=== PATIENT | female | born 1955 | race Hispanic/Latino ===

== ENCOUNTER 2017-02-26 10:41 | Inpatient (IN) | payer OTHER ==
[2017-02-26] MEDS ORDERED: HEPARIN 10,000 UNITS/10 ML IV ONE (11:28)
[2017-02-26] MEDS ORDERED: NARCAN 0.4 MG/1 ML IV PRN (11:30)
[2017-02-26] MEDS ORDERED: MILK OF MAGNESIA PO PRN (11:30)
[2017-02-26] MEDS ORDERED: MORPHINE IV PRN (11:30)
[2017-02-26] MEDS ORDERED: ZOFRAN IV PRN (11:30)
[2017-02-26] MEDS ORDERED: NORCO 5/325 PO PRN (11:30)
[2017-02-26] MEDS ORDERED: DULCOLAX PR PRN (11:30)
[2017-02-26] MEDS ORDERED: TYLENOL PO PRN (11:30)
[2017-02-26] MEDS ORDERED: HEPARIN/ 0.45% NACL-25,000 UNIT/500 ML 25,000 UNIT/500 ML BAG IV SCH (12:00)
[2017-02-26 13:58] LABS: Basophils # (Auto) 0.1 K/mm3 (0.0-0.1); Basophils % (Auto) 0.8 % (0.0-1.8); Eosinophils # (Auto) 0.1 K/mm3 (0.0-0.4); Eosinophils % (Auto) 1.7 % (0.0-4.3); Hematocrit 36.5 % (30.3-42.9); Hemoglobin 12.1 gm/dl (10.1-14.3); Lymphocytes # (Auto) 2.1 K/mm3 (1.2-5.4); Lymphocytes % (Auto) 31.3 % (13.4-35.0); Mean Corpuscular HGB Conc 33 % (30-34); Mean Corpuscular Hemoglobin 29 pg (28-32); Mean Corpuscular Volume 87 fl (79-97); Monocytes # (Auto) 0.6 K/mm3 (0.0-0.8); Monocytes % (Auto) 9.1 % (0.0-7.3); Platelet Count 270 K/mm3 (140-440)
[2017-02-26 14:07] LABS: INR 0.98 (0.87-1.13); Partial Thromboplastin Time 31.2 Sec. (24.2-36.6)
[2017-02-26 14:08] LABS: BUN/Creatinine Ratio 44; Blood Urea Nitrogen 22 mg/dL (7-17); Calcium 9.4 mg/dL (8.4-10.2); Hemolysis Index 3
--- NOTE | 2017-02-26 17:04 | Cat Scan Report ---
FINAL REPORT PROCEDURE: CT ANGIO CHEST TECHNIQUE: Computerized tomographic angiography of the chest was performed after the IV injection of iodinated nonionic contrast including image processing. The image data was postprocessed using 2-dimensional multiplanar reformatted (MPR) and 3-dimensional (MIP and/or volume rendered) techniques. HISTORY: dvt with shortness of breath COMPARISON: No prior studies are available for comparison. FINDINGS: Heart and pericardium: No pericardial effusion or thickening is seen. Thoracic aorta: No aneurysm or dissection is seen.. Pulmonary vasculature: Normal. Lymph nodes: No enlarged thoracic lymph nodes. Lungs: Minimal linear atelectasis or scarring in the right lung base. Pleural space: No effusion, thickening, or pneumothorax. Musculoskeletal structures: There are degenerative disc changes of the mid thoracic spine, with disc space narrowing and anterior osteophyte formation. Upper abdominal structures: There is a 3 millimeter low-density lesion in the right hepatic lobe, likely a cyst. IMPRESSION: No evidence of pulmonary emboli
[2017-02-26] MEDS: HEPARIN 10,000 UNITS/10 ML ONE (17:53)
--- NOTE | 2017-02-26 18:04 | Event Note ---
Date: 02/26/17 H&P was sent with patient. This should be updated. Patient had CT angiogram. Patient is nothing by mouth for IVC filter and thrombectomy tomorrow.
--- NOTE | 2017-02-27 09:30 | Consultation ---
History of Present Illness - Reason for Consult Consult date: 02/27/17 - History of Present Illness Patient is 61 yo admitted with DVT right lower ext. The hospitalist service has been consulted for management of medical comorbidities Past History Past Medical History: DVT (Right leg), other Past Surgical History: total hip replacement, Other (Tubal ligation) Medications and Allergies Allergies Allergy/AdvReac Type Severity Reaction Status Date / Time strawberry Allergy Rash Unverified 02/26/17 12:27 Home Medications Medication Instructions Recorded Confirmed Last Taken Type Acetaminophen/Codeine [Tylenol 1 each PO Q4-6H PRN 02/26/17 02/26/17 02/26/17 History /Codeine # 3 tab] Apixaban [Eliquis] 10 mg PO BID 02/26/17 02/26/17 02/25/17 History Active Meds: Active Medications Acetaminophen (Tylenol) 650 mg PO Q4H PRN PRN Reason: Pain MILD(1-3)/Fever >100.5/MATHEWS Acetaminophen/Hydrocodone Bitart ([place] 5/325) 2 each PO Q6H PRN PRN Reason: Pain, Moderate (4-6) Bisacodyl (Dulcolax) 10 mg [place] QDAY PRN PRN Reason: Constipation unrelieved by MOM Heparin Sodium/Sodium Chloride (Heparin/ 0.45% Nacl-25,000 Unit/500 Ml) 25,000 unit in 500 mls @ 24 mls/hr IV TITR PATRICK; 1,200 UNITS/HR PRN Reason: Protocol Last Titration: 02/27/17 03:02 Dose: 1,050 units/hr, 21 mls/hr Sodium Chloride (Nacl 0.9% 1000 Ml) 1,000 mls @ 75 mls/hr IV DIRECT PATRICK Last Admin: 02/27/17 00:00 Dose: 75 mls/hr Magnesium Hydroxide (Milk Of Magnesia) 30 ml PO Q4H PRN PRN Reason: Constipation Morphine Sulfate (Morphine) 2 mg IV Q4H PRN PRN Reason: Pain, Moderate (4-6) Naloxone HCl (Narcan 0.4 Mg/1 Ml) 0.1 mg IV Q2MIN PRN PRN Reason: Res Rate </= 8 or 02 SAT < 92% Ondansetron HCl (Zofran) 4 mg IV Q8H PRN PRN Reason: Nausea Exam - Constitutional Vitals: Temp Pulse Resp BP Pulse Ox 98.3 F 94 H 20 140/77 98 02/27/17 07:57 02/27/17 07:57 02/27/17 07:57 02/27/17 07:57 02/27/17 07:57 Results - Labs CBC & Chem 7: 02/26/17 13:10 02/26/17 13:06 Labs: Abnormal lab results 02/26/17 02/26/17 02/26/17 Range/Units 13:06 13:10 23:30 [place] % (Auto) 9.1 H (0.0-7.3) % Heparin Anti-Xa Level 1.37 H (0.3-0.7) U.I./ml Potassium 5.1 H (3.6-5.0) mmol/L BUN 22 H (7-17) mg/dL Creatinine 0.5 L (0.7-1.2) mg/dL 02/27/17 Range/Units 08:46 [place] % (Auto) (0.0-7.3) % Heparin Anti-Xa Level 0.84 H (0.3-0.7) U.I./ml Potassium (3.6-5.0) mmol/L BUN (7-17) mg/dL Creatinine (0.7-1.2) mg/dL Assessment and Plan DVT right lower extremity. On Heparin drip. For thrombectomy and IVC filter placement today. Elevated BP episodes. She denies HTN. Will monitor Full code status
[2017-02-27] MEDS ORDERED: HEPARIN/NS 5000 UNIT/500ML(CATH LAB) 1,000 ML IR ONE (11:36)
[2017-02-27] MEDS ORDERED: ANCEF/STERILE WATER 2 GM/20 ML 2 GM/20 ML SYRINGE IV ONE (11:37)
[2017-02-27] MEDS ORDERED: NACL 0.9% 500 ML 500 ML ONE (11:37)
[2017-02-27] MEDS: SUBLIMAZE ONE ×10 (11:59→15:07)
[2017-02-27] MEDS: VERSED ONE ×10 (11:59→15:07)
[2017-02-27] MEDS: XYLOCAINE 2% INFILTRATI ONE ×2 (12:02→12:38)
[2017-02-27] MEDS: HEPARIN 10,000 UNITS/10 ML ONE ×4 (12:05→13:52)
[2017-02-27] MEDS: BENADRYL ONE ×2 (12:44→13:03)
[2017-02-27] MEDS ORDERED: NACL 0.9% 50 ML ONE (12:52)
[2017-02-27] MEDS ORDERED: CATHFLO ONE (12:53)
[2017-02-27] MEDS ORDERED: HEPARIN/NS 5000 UNIT/500ML(CATH LAB) 500 ML IR ONE ×2 (12:53→14:12)
[2017-02-27] MEDS ORDERED: WATER FOR INJ (PF) 20 ML ONE (12:54)
[2017-02-27] MEDS ORDERED: NACL 0.9% 1000 ML 1,000 ML ONE (14:31)
[2017-02-27] MEDS ORDERED: ELIQUIS ONE (14:37)
[2017-02-27] MEDS ORDERED: HEPARIN 10,000 UNITS/10 ML ONE (14:59)
--- NOTE | 2017-02-27 15:46 | Operative Report ---
Operative Report Operative Report: EXAM: 1. Ultrasound guided access of the right internal jugular vein 2. Selection of the IVC with IVC venography 3. Fluoroscopic-guided placement of an infrarenal [place] retrievable IVC filter 4. Ultrasound-guided access of the right popliteal vein 5. Venography of the right lower extremity 6. Infusion of 10 mg of tPA with pulse spray in the right common iliac vein, external iliac vein, common femoral vein, and proximal superficial femoral vein 7. 8 [place] AngioJet mechanical thrombectomy of the right common iliac vein, external iliac vein, common femoral vein, and proximal superficial femoral vein 8. Supervisor Body Assembly 6 [place] mechanical thrombectomy device in the right common femoral vein and proximal superficial femoral vein 9. 8 [place] MPA guide aspiration thrombectomy in the right common femoral vein and proximal superficial femoral vein 10. Angioplasty of the right external iliac vein, right common femoral vein and proximal superficial femoral vein with a 9 mm and 12 mm angioplasty below 11. Intravascular ultrasound of the right superficial femoral vein, common femoral vein, external iliac vein, common femoral vein, and IVC 11. Intermittent thrombectomy of the right proximal superficial femoral artery with various devices 12. Fluoroscopic-guided placement of a right common iliac vein 16 mm x 90 mm wall stent endoprosthesis with postdilatation with a 16 mm angioplasty balloon 13. Angioplasty of the right common femoral vein with a 12 mm angioplasty balloon 14. 8 [place] AngioJet mechanical thrombectomy of the IVC filter 15. Venography of the right lower extremity DATE: 02/27/17 STRAWHAT SIZER: AMPARO BETANCOURT MD INDICATION: Symptomatic right lower extremity DVT with signs of phlegmasia. MEDICATIONS: Please see nursing report for full details. DEVICES: 8 [place] MPA guide 8 [place] AngioJet 6 [place] grain cleaner 12 mm angioplasty balloon 9 mm angioplasty balloon 16 mm angioplasty balloon 16 x 90 mm wall stent endoprosthesis Retrievable [place] IVC filter CONTRAST: Please see greenskeeper laborer report for full details PROCEDURE: The risks, benefits, and alternatives were discussed with the patient; written informed consent was obtained. The right neck was prepped and draped in a sterile fashion. Under direct ultrasound guidance, the right internal jugular vein was accessed with a 21- gauge micropuncture needle. 0.018 inch wire was passed to the IVC. Needle was exchanged for transitional dilator. Wire was exchanged for 0.035 inch wire. Transitional dilator was exchanged for a 5 [place] sheath. Pigtail cath was advanced over the wire into the IVC. The IVC was selected. Digital subjection angiography was performed demonstrating no evidence of thrombus in the IVC. The IVC was normal in size. Renal inflow was identified. There is reflux into the left common iliac vein which was patent. There is no reflex into the right common iliac vein which was probably occluded. The table was locked. Catheter was removed and sheath was removed and exchange for the IVC filter deployment device. IVC filter was advanced through the deployment device and appropriately placed below the renal veins and above the iliac caval junction. This was done under direct fluoroscopic guidance. Angiography was performed confirming position and patency of the IVC. The IVC filter was not tilted and was appropriately positioned midline. Wires, catheters and sheath removed. Pressure was held until hemostasis was achieved. Pressure dressing applied. The patient was flipped into the prone position. The right popliteal fossa was prepped and draped in a sterile fashion. Under direct ultrasound guidance, the right popliteal vein was accessed with a 21-gauge micropuncture needle. 0.018 inch wire was passed into the femoral vein. Needle was exchanged for transitional dilator. Wire was exchanged for 0.035 inch wire. Transitional dilator was exchanged for an 8 [place] sheath. The patient was heparinized. Digital subtraction angiography was performed demonstrating patency of the popliteal vein, and the lower and mid femoral vein. The upper femoral vein was thrombosed. The common femoral vein was thrombosed. The external iliac vein was thrombosed. The common iliac vein is thrombosed. The right external iliac vein was selected and digital subtraction angiography was performed confirming thrombosis of this vein. The IVC was selected and digital subtraction angiography confirmed patency of the IVC again. 0.035 inch wire was passed centrally. 8 [place] AngioJet was advanced over the wire used pulse spray 10 mg of tPA in the right upper femoral vein, common femoral vein, external iliac vein, and common iliac vein. 25 minute dwell time was allowed. 8 [place] mechanical thrombectomy was then performed of the right upper femoral vein, common femoral vein, external iliac vein, and common iliac vein. Digital subtraction angiography demonstrated clearance of thrombus in the right external iliac vein and common iliac vein with some residual thrombus in the internal iliac vein. Thrombectomy was repeated and digital subtraction angiography demonstrated clearance of thrombus from the internal iliac vein. Digital subtraction angiography demonstrated residual thrombus in the common femoral vein and upper femoral vein. 6 [place] grain cleaner was used to perform mechanical thrombectomy of the common femoral vein and upper femoral vein multiple times. 8 [place] MPA guide was then used to perform aspiration thrombectomy. 8 [place] AngioJet was used to perform mechanical thrombectomy of the section. Intermittent digital subtraction angiography was performed and the steps were repeated. As the steps were repeated, more and more of the thrombus was removed. There is some residual multifocal noncontiguous narrowing in the right lower external iliac vein, common femoral vein, and upper femoral vein. 9 mm angioplasty balloon was used to perform angioplasty of the right external iliac vein, common femoral vein and the upper femoral vein. This was performed multiple times. Intermittent 8 [place] mechanical thrombectomy was then performed. 12 mm angioplasty balloon was used to perform angioplasty of the right external iliac vein, right common femoral vein and the right upper femoral vein. Intermittent digital subtraction angiography was performed. Ultimately, all of the thrombus was cleared except for a focal 50% short segment thrombus within the upper femoral vein. The narrowing within the right external iliac vein had resolved after angioplasty. The narrowing within the upper femoral vein had resolved, but there is still a small amount of thrombus within it. There is some mild residual narrowing within the right common femoral vein. Intravascular ultrasound was then advanced over the wire and used to perform evaluation of the IVC, right common iliac vein, right external iliac vein, right common femoral vein, and right femoral vein. There was severe extrinsic compression from the right common iliac artery on the right common iliac vein resulting in 99% narrowing of the vessel. There is clearance of all thrombus from the right common iliac vein and external iliac vein. The right common femoral vein had some wall thickening suggestive of chronic issues with this vein but the thrombus within it had been removed. The right upper femoral vein had a focal less than 50% short segment thrombus within it. The rest of the femoral vein was patent. There is a small amount of thrombus within the IVC filter. I then used a 16 mm x 90 mm wall stent and deployed this across the right common iliac vein. This was post dilated with a 16 mm angioplasty balloon. I performed prolonged 6 minute angioplasty with a 12 mm angioplasty balloon of the right common femoral vein. I then used the 8 [place] mechanical thrombectomy device to perform mechanical thrombectomy of the IVC filter. Digital subtraction angiography was then performed demonstrating patency of the right femoral vein except for the short segment (1 cm)l less than 50% narrowing residual thrombus within the upper femoral vein. The right common femoral vein was widely patent without residual narrowing. The right external iliac vein was widely patent. The right stented common iliac vein is widely patent with flow passing into the IVC. The IVC filter was widely patent. After achieving this result, the patient was re-heparinized, and all wires, catheters, and she were removed. Pressure was held until hemostasis was achieved. The patient was provided 10 mg of Eliquis and DAGO hose was placed over the right leg. Pressure bandage applied to the right popliteal vein access site. FINDINGS: Please see procedure note above. IMPRESSION: 1. Successful mechanical thrombectomy of the right lower extremity venous system as described above. 2. Successful stenting of the right common iliac vein. 3. Successful intravascular ultrasound evaluation of the right common iliac vein, right external iliac vein, right common femoral vein, and right femoral vein. 4. Successful angioplasty of the right external iliac vein. 5. Successful angioplasty of the right common femoral vein. 6. Successful angioplasty of the right femoral vein/superficial femoral vein. 7. Successful placement of an infrarenal [place] IVC filter.
--- NOTE | 2017-02-27 15:53 | Post Operative Note ---
Date of procedure: 02/27/17 Pre-op diagnosis: Symptomatic RLE DVT Post-op diagnosis: same Procedure: 1. Ultrasound guided access of the right internal jugular vein 2. Selection of the IVC with IVC venography 3. Fluoroscopic-guided placement of an infrarenal [place] retrievable IVC filter 4. Ultrasound-guided access of the right popliteal vein 5. Venography of the right lower extremity 6. Infusion of 10 mg of tPA with pulse spray in the right common iliac vein, external iliac vein, common femoral vein, and proximal superficial femoral vein 7. 8 [place] AngioJet mechanical thrombectomy of the right common iliac vein, external iliac vein, common femoral vein, and proximal superficial femoral vein 8. Melt Room Operator 6 [place] mechanical thrombectomy device in the right common femoral vein and proximal superficial femoral vein 9. 8 [place] MPA guide aspiration thrombectomy in the right common femoral vein and proximal superficial femoral vein 10. Angioplasty of the right common femoral vein and proximal superficial femoral vein with a 9 mm and 12 mm angioplasty below 11. Intravascular ultrasound of the right superficial femoral vein, common femoral vein, external iliac vein, common femoral vein, and IVC 11. Intermittent thrombectomy of the right proximal superficial femoral artery with various devices 12. Fluoroscopic-guided placement of a right common iliac vein 16 mm x 90 mm wall stent endoprosthesis with postdilatation with a 16 mm angioplasty balloon 13. Angioplasty of the right common femoral vein with a 12 mm angioplasty balloon 14. 8 [place] AngioJet mechanical thrombectomy of the IVC filter 15. Venography of the right lower extremity Anesthesia: local (w/ conscious sedation) Surgeon: AMPARO BETANCOURT Estimated blood loss: minimal Condition: stable Disposition: floor
[2017-02-27] MEDS: NACL 0.9% 1000 ML 1,000 ML IV SCH ×3 (16:05→19:43)
[2017-02-27] MEDS ORDERED: MORPHINE ONE (16:43)
[2017-02-27] MEDS ORDERED: ZOFRAN ONE (16:49)
[2017-02-28] MEDS: ELIQUIS PO SCH ×2 (00:13→11:41)
[2017-02-28] MEDS: NACL 0.9% 1000 ML 1,000 ML IV SCH ×2 (00:48→06:56)
[2017-02-28 06:11] LABS: Hematocrit 31.4 % (30.3-42.9); Hemoglobin 10.3 gm/dl (10.1-14.3)
[2017-02-28 10:01] VITALS: BP 110/66
--- NOTE | 2017-02-28 10:32 | Progress Note ---
Assessment and Plan 61-year-old female presented with 3 months of shortness of breath and symptomatic right lower extremity proximal DVT. CT PA was negative. IVC filter placed and thrombectomy of right lower extremity was performed. Patient had an episode of shortness of breath after a prolonged procedure and IV narcotics which resolved. Back to baseline shortness of breath. Discussed with pulmonology who recommend echocardiogram and outpatient visit. Discussed with hospitalist who agree with plan. Set up with Dr. Callaway. Right lower extremity has significantly improved with decreased swelling, decreased pain, and now patient can ambulate. On Eliquis. After echocardiogram, patient can be discharged and will follow up with pulmonology and vascular. Subjective Date of service: 02/28/17 Interval history: Had shortness of breath for 3 months. CTPA negative. Got slightly worse last night. Her breathing is now back to baseline. Ambulated and her O2 sat went to 89%. Not below 88%. Contacted pulmonology who recommended echocardiogram with outpatient appointment. Discussed with hospitalist who agreed with plan. Right lower extremity feels much better. No longer has pain. Swelling improving. Palpable pulses. Now able to ambulate, which she wasn't able to for the last week. Objective - Constitutional Vitals: Vital Signs - 12hr 02/27/17 02/28/17 02/28/17 23:46 03:39 08:31 Temperature 99.3 F 99.6 F 98.7 F Pulse Rate 103 H 98 H 103 H Respiratory 18 18 20 Rate Blood Pressure 145/90 124/78 110/66 Blood Pressure [Right] O2 Sat by Pulse 92 97 88 Oximetry 02/28/17 02/28/17 08:36 09:59 Temperature 98.7 F Pulse Rate 95 H 99 H Respiratory 20 Rate Blood Pressure Blood Pressure 110/66 [Right] O2 Sat by Pulse 90 Oximetry General appearance: Present: no acute distress - EENT Eyes: EOM intact ENT: hearing intact - Respiratory Respiratory effort: other (No wheezes. No stridor. Not labored.) Extremities: normal temperature (right lower extremity), normal color (right lower extremity) Extremity abnormal: edema (right lower extremity) - Gastrointestinal General gastrointestinal: Present: soft - Psychiatric Psychiatric: appropriate mood/affect, cooperative - Labs CBC & Chem 7: 02/28/17 04:00 02/26/17 13:06
--- NOTE | 2017-02-28 10:43 | Short Stay Summary ---
Short Stay Documentation Date of service: 02/26/17 (Discharged on 02/28/17) Narrative H&P: 61-year-old female with symptomatically right lower extremity DVT and 3 months of shortness of breath who presents for thrombectomy. - History H&P: obtained from office Past Medical History: DVT (Right leg), other Past Surgical History: total hip replacement, Other (Tubal ligation) - Allergies and Medications Current Medications: Allergies strawberry Allergy (Unverified 02/26/17 12:27) Rash Home Medications Medication Instructions Recorded Confirmed Last Taken Type Acetaminophen/Codeine [Tylenol 1 each PO Q4-6H PRN 02/26/17 02/26/17 02/26/17 History /Codeine # 3 tab] Apixaban [Eliquis] 10 mg PO BID 02/26/17 02/26/17 02/25/17 History Active Medications Acetaminophen (Tylenol) 650 mg PO Q4H PRN PRN Reason: Pain MILD(1-3)/Fever >100.5/MATHEWS Acetaminophen/Hydrocodone Bitart ([place] 5/325) 2 each PO Q6H PRN PRN Reason: Pain, Moderate (4-6) Apixaban (Eliquis) 10 mg PO Q12HR PATRICK PRN Reason: Protocol Last Admin: 02/28/17 00:13 Dose: 10 mg Bisacodyl (Dulcolax) 10 mg [place] QDAY PRN PRN Reason: Constipation unrelieved by MOM Magnesium Hydroxide (Milk Of Magnesia) 30 ml PO Q4H PRN PRN Reason: Constipation Morphine Sulfate (Morphine) 2 mg IV Q4H PRN PRN Reason: Pain, Moderate (4-6) Last Admin: 02/27/17 16:46 Dose: 2 mg Naloxone HCl (Narcan 0.4 Mg/1 Ml) 0.1 mg IV Q2MIN PRN PRN Reason: Res Rate </= 8 or 02 SAT < 92% Ondansetron HCl (Zofran) 4 mg IV Q8H PRN PRN Reason: Nausea Last Admin: 02/27/17 16:50 Dose: 4 mg - Physical exam General appearance: mild distress (RLE pain) Lungs: Normal air movement Extremities: normal temperature (right lower extremity), normal color (right lower extremity) - Brief post op/procedure progress note Date of procedure: 02/27/17 Pre-op diagnosis: Symptomatic RLE DVT Post-op diagnosis: same Procedure: 1. Ultrasound guided access of the right internal jugular vein 2. Selection of the IVC with IVC venography 3. Fluoroscopic-guided placement of an infrarenal [place] retrievable IVC filter 4. Ultrasound-guided access of the right popliteal vein 5. Venography of the right lower extremity 6. Infusion of 10 mg of tPA with pulse spray in the right common iliac vein, external iliac vein, common femoral vein, and proximal superficial femoral vein 7. 8 [place] AngioJet mechanical thrombectomy of the right common iliac vein, external iliac vein, common femoral vein, and proximal superficial femoral vein 8. Community Center Coordinator 6 [place] mechanical thrombectomy device in the right common femoral vein and proximal superficial femoral vein 9. 8 [place] MPA guide aspiration thrombectomy in the right common femoral vein and proximal superficial femoral vein 10. Angioplasty of the right common femoral vein and proximal superficial femoral vein with a 9 mm and 12 mm angioplasty below 11. Intravascular ultrasound of the right superficial femoral vein, common femoral vein, external iliac vein, common femoral vein, and IVC 11. Intermittent thrombectomy of the right proximal superficial femoral artery with various devices 12. Fluoroscopic-guided placement of a right common iliac vein 16 mm x 90 mm wall stent endoprosthesis with postdilatation with a 16 mm angioplasty balloon 13. Angioplasty of the right common femoral vein with a 12 mm angioplasty balloon 14. 8 [place] AngioJet mechanical thrombectomy of the IVC filter 15. Venography of the right lower extremity Anesthesia: local (w/ conscious sedation) Surgeon: AMPARO BETANCOURT Estimated blood loss: other (300 mL blood loss from thrombectomy devices) Condition: stable - Hospital course Hospital course: Patient was admitted to the hospital and was initially started on a heparin drip. This allowed her transition from Eliquis to heparin. She had a CT pulmonary angiogram performed due to her 3 months of shortness of breath which demonstrated no pulmonary emboli. She underwent right lower extremity percutaneous thrombectomy and IVC filter placement. She had excellent technical result. Her symptoms of her right lower extremity have greatly improved. She had a transitory episode of shortness of breath after being sedated which has since resolved. She is back to her baseline shortness of breath. Right lower extremity is now able to be moved without pain. Regarding shortness of breath, I contacted Dr. Callaway who recommended echocardiogram and outpatient appointment with pulmonology. This was discussed with Dr. Schofield, hospitalist, who agreed with the plan. Patient will be subsequently discharged after echocardiogram. 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
--- NOTE | 2017-02-28 14:04 | Progress Note ---
Hospitalist Physical - Constitutional Vitals: Temp Pulse Resp BP Pulse Ox 98.7 F 99 H 20 110/66 90 02/28/17 09:59 02/28/17 09:59 02/28/17 09:59 02/28/17 09:59 02/28/17 09:59 General appearance: Present: mild distress (RLE pain) Results - Labs CBC & Chem 7: 02/28/17 04:00 02/26/17 13:06 Labs: Laboratory Last Values WBC 6.8 K/mm3 (4.5-11.0) 02/26/17 13:10 RBC 4.20 M/mm3 (3.65-5.03) 02/26/17 13:10 Hgb 10.3 gm/dl (10.1-14.3) 02/28/17 04:00 Hct 31.4 % (30.3-42.9) 02/28/17 04:00 MCV 87 fl (79-97) 02/26/17 13:10 MCH 29 pg (28-32) 02/26/17 13:10 MCHC 33 % (30-34) 02/26/17 13:10 RDW 14.0 % (13.2-15.2) 02/26/17 13:10 Plt Count 233 K/mm3 (140-440) 02/28/17 04:00 Lymph % (Auto) 31.3 % (13.4-35.0) 02/26/17 13:10 [place] % (Auto) 9.1 % (0.0-7.3) H 02/26/17 13:10 Eos % (Auto) 1.7 % (0.0-4.3) 02/26/17 13:10 Baso % (Auto) 0.8 % (0.0-1.8) 02/26/17 13:10 Lymph # 2.1 K/mm3 (1.2-5.4) 02/26/17 13:10 [place] # 0.6 K/mm3 (0.0-0.8) 02/26/17 13:10 Eos # 0.1 K/mm3 (0.0-0.4) 02/26/17 13:10 Baso # 0.1 K/mm3 (0.0-0.1) 02/26/17 13:10 Seg Neutrophils % 57.1 % (40.0-70.0) 02/26/17 13:10 Seg Neutrophils # 3.9 K/mm3 (1.8-7.7) 02/26/17 13:10 PT 13.5 Sec. (12.2-14.9) 02/26/17 13:06 INR 0.98 (0.87-1.13) 02/26/17 13:06 APTT 31.2 Sec. (24.2-36.6) 02/26/17 13:06 Heparin Anti-Xa Level 0.84 U.I./ml (0.3-0.7) H 02/27/17 08:46 Sodium 142 mmol/L (137-145) 02/26/17 13:06 Potassium 5.1 mmol/L (3.6-5.0) H 02/26/17 13:06 Chloride 104.5 mmol/L (98-107) 02/26/17 13:06 Carbon Dioxide 24 mmol/L (22-30) 02/26/17 13:06 Anion Gap 19 mmol/L 02/26/17 13:06 BUN 22 mg/dL (7-17) H 02/26/17 13:06 Creatinine 0.5 mg/dL (0.7-1.2) L 02/26/17 13:06 Estimated GFR > 60 ml/min 02/26/17 13:06 BUN/Creatinine Ratio 44 % 02/26/17 13:06 Glucose 95 mg/dL (65-100) 02/26/17 13:06 Calcium 9.4 mg/dL (8.4-10.2) 02/26/17 13:06
--- NOTE | 2017-03-03 10:27 | Vascular Lab Report ---
MISCELLANEOUS VESSEL IDENTIFICATION: COMMENTS ON THE SCAN: The right popliteal vein was identified and under real-time ultrasound guidance was cannulated. IMPRESSION: Successful ultrasound guided vein cannulation.
--- NOTE | 2017-03-03 10:29 | Vascular Lab Report ---
MISCELLANEOUS VESSEL IDENTIFICATION: COMMENTS ON THE SCAN: The right IJ vein was identified and under real-time ultrasound guidance was cannulated. IMPRESSION: Successful ultrasound guided vein cannulation.
--- NOTE | 2017-03-04 13:06 | Query-Hypercoagulopathy ---
Dear Shawna Date: 03/04/17 Ordained Minister/CDS:____Jhjatin / Jin Phone#:____[phone] Exercise your independent professional judgment when responding to query. Questions asked do not imply a particular answer is desired or expected. We greatly appreciate your clarification on this issue. Clinical Documentation States: 61 year old female was admitted on 02/26/17 The Progress note (Dr. Matos 02/27/17) states " Patient is 61 yo admitted with DVT right lower ext. The hospitalist service has been consulted for management of medical comorbidities Assessment and Plan DVT right lower extremity. On Heparin drip. For thrombectomy and IVC filter placement today. " Please clarify if the patient has any of the following condition/s: [ ] Primary Hypercoagulopathy due to: [ ] Factor V Leiden [ ] Protein C/S deficiency [ ] Prothrombin G 59379C (Factor II mutation) [ ] Antithrombin III (AT III) deficiency [ ] Sickle cell anemia and other hemolytic anemias [ ] Lupus anticoagulant [ ] Unable to determine [ x] Secondary Hypercoagulopathy due to: [ ] Advanced age [ ] Atrial Fibrillation [ ] Diabetic Ketoacidosis (DKA) [ ] [ ] Oral contraceptives [ ] Hormonal replacement use [ ] Heparin Induced Thrombocytopenia (HIT) [ ] Severe Nephrotic Syndrome (Albumin < 2.5g/dl) [x ] Unable to determine [ ] Other: [ ] Comment/Explanation: Present on admission: [x ] Yes (Y) [ ] Clinically undeterminable (W) [ ] No (N) Please also document response in your Progress Notes and/or Discharge Summary and indicate if the condition was present on admission. ION
== END 2017-02-28 12:55 | disposition home health service (06) | DRG 271 ==
LOC: UNDOADMIN 10:41 → 3A 10:41 → 4A 02-27 16:45
PROVIDERS: ADMIT Radiology Diagnostic Radiology; ATTEND Radiology Diagnostic Radiology
PROC: 06CC3ZZ Extirpation of Matter from Right Common Iliac Vein, Percutaneous Approach (ICD-10-PCS; principal; 2017-02-27)
PROC: 06CF3ZZ Extirpation of Matter from Right External Iliac Vein, Percutaneous Approach (ICD-10-PCS; 2017-02-27)
PROC: 06CM3ZZ Extirpation of Matter from Right Femoral Vein, Percutaneous Approach (ICD-10-PCS; 2017-02-27)
PROC: 06CM3ZZ Extirpation of Matter from Right Femoral Vein, Percutaneous Approach (ICD-10-PCS; 2017-02-27)
PROC: 04CK3ZZ Extirpation of Matter from Right Femoral Artery, Percutaneous Approach (ICD-10-PCS; 2017-02-27)
PROC: 06C03ZZ Extirpation of Matter from Inferior Vena Cava, Percutaneous Approach (ICD-10-PCS; 2017-02-27)
PROC: 067M3ZZ Dilation of Right Femoral Vein, Percutaneous Approach (ICD-10-PCS; 2017-02-27)
PROC: 067C3DZ Dilation of Right Common Iliac Vein with Intraluminal Device, Percutaneous Approach (ICD-10-PCS; 2017-02-27)
PROC: 067F3ZZ Dilation of Right External Iliac Vein, Percutaneous Approach (ICD-10-PCS; 2017-02-27)
PROC: 067M3ZZ Dilation of Right Femoral Vein, Percutaneous Approach (ICD-10-PCS; 2017-02-27)
PROC: B5191ZZ Fluoroscopy of Inferior Vena Cava using Low Osmolar Contrast (ICD-10-PCS; 2017-02-27)
PROC: B51B1ZZ Fluoroscopy of Right Lower Extremity Veins using Low Osmolar Contrast (ICD-10-PCS; 2017-02-27)
PROC: 3E03317 Introduction of Other Thrombolytic into Peripheral Vein, Percutaneous Approach (ICD-10-PCS; 2017-02-27)
PROC: B54BZZZ Ultrasonography of Right Lower Extremity Veins (ICD-10-PCS; 2017-02-27)
PROC: 06H03DZ Insertion of Intraluminal Device into Inferior Vena Cava, Percutaneous Approach (ICD-10-PCS; 2017-02-27)
PROC: B549ZZZ Ultrasonography of Inferior Vena Cava (ICD-10-PCS; 2017-02-27)
DX: I82.411 Acute embolism and thrombosis of right femoral vein (principal); D68.69 Other thrombophilia; Z96.649 Presence of unspecified artificial hip joint; Z98.51 Tubal ligation status; Z91.018 Allergy to other foods; Z79.899 Other long term (current) drug therapy
CPT/HCPCS: 36415; 37187; 37191; 37238; 37248; 37252; 37253; 71275; 75820; 76937; 80048; 85014; 85018; 85025; 85049; 85520; 85610; 85730; 93306; 96374; 96375; C1725; C1753; C1757; C1769; C1880; C1887; C1894; J0690; J1200; J1644; J2250; J2270; J2405; J2997; J3010; J7030; J7040; Q9967

== ENCOUNTER 2021-11-13 07:20 | Inpatient (IN) | payer MEDICARE, OTHER ==
[2021-11-13 08:56] LABS: Basophils # (Auto) 0.1 K/mm3 (0.0-0.1); Basophils % (Auto) 1.2 % (0.0-1.8); Eosinophils # (Auto) 0.2 K/mm3 (0.0-0.4); Eosinophils % (Auto) 2.4 % (0.0-4.3); Hemoglobin 11.2 gm/dl (10.1-14.3); Lymphocytes # (Auto) 2.2 K/mm3 (1.2-5.4); Lymphocytes % (Auto) 26.5 % (13.4-35.0); Mean Corpuscular HGB Conc 33 % (30-34); Mean Corpuscular Volume 88 fl (79-97); Monocytes # (Auto) 0.8 K/mm3 (0.0-0.8); Monocytes % (Auto) 9.5 % (0.0-7.3); Platelet Count 384 K/mm3 (140-440); Red Blood Count 3.88 M/mm3 (3.65-5.03); Red Cell Distribution Width 13.8 % (13.2-15.2)
[2021-11-13] MEDS ORDERED: SODIUM CHLORIDE 0.9% 1000 ML 1,000 ML IV SCH (09:00)
[2021-11-13 09:01] LABS: INR 1.11 (0.87-1.13)
[2021-11-13 09:02] LABS: Partial Thromboplastin Time 34.2 Sec. (24.2-36.6)
[2021-11-13 09:03] LABS: Blood Urea Nitrogen 12 mg/dL (7-17); Hemolysis Index 0
[2021-11-13 09:22] LABS: BUN/Creatinine Ratio 20
--- NOTE | 2021-11-13 10:02 | Anesthesia Day of Surgery ---
Anesthesia Day of Surgery - Day of Surgery Patient Examined: Yes Patient H&P Reviewed: Yes Patient is NPO: Yes
--- NOTE | 2021-11-13 10:06 | Anesthesia Consultation ---
Anesthesia Consult and Med Hx Date of service: 11/13/21 - Airway Anesthetic Teeth Evaluation: Good ROM Head & Neck: Adequate (S/P ACDF) Mental/Hyoid Distance: Adequate Mallampati Class: Class II Intubation Access Assessment: Good - Pre-Operative Health Status ASA Pre-Surgery Classification: ASA3 Proposed Anesthetic Plan: MAC (GA if needed) - Pulmonary Hx Smoking: Yes - Cardiovascular System Hx Heart Murmur: Yes Hx Peripheral Vascular Disease: Yes (AAA-1.2cm) - Central Nervous System Hx Back Pain: Yes Hx Psychiatric Problems: No - Gastrointestinal Hx Gastroesophageal Reflux Disease: No - Other Systems Hx Cancer: No - Additional Comments Anesthesia Medical History Comments: Pt had ACDF on and developed DVT (denies PE). Also had DVT in 2018. Pt states she saw Dr. Das at [facility] prior to ACDF and was cleared. Reports chronically decreased activity level and dyspnea since she was young.
[2021-11-13] MEDS: MIDAZOLAM 2 MG/2 ML INJ IV NR ×2 (10:15→10:46)
[2021-11-13] MEDS ORDERED: HEPARIN/NS 5000 UNIT/500ML 1,000 ML IR ONE ×2 (10:42→11:53)
[2021-11-13] MEDS ORDERED: fentaNYL 100 MCG/2 ML INJ ONE (10:44)
[2021-11-13] MEDS ORDERED: SODIUM CHLORIDE 0.9% 500 ML 500 ML IV ONE (11:00)
[2021-11-13] MEDS ORDERED: LIDOCAINE 1%/EPINEPHRINE 1:100,000 VIAL (20 ML) INFILTRATI ONE (11:02)
[2021-11-13] MEDS ORDERED: MIDAZOLAM 2 MG/2 ML INJ ONE (11:04)
[2021-11-13] MEDS ORDERED: LIDOCAINE MPF (2%) 20 MG/1 ML VIAL 5 ML ONE (11:04)
[2021-11-13] MEDS ORDERED: KETAMINE/STERILE WATER 50 MG/ML SYRINGE ONE (11:04)
[2021-11-13] MEDS ORDERED: ePHEDrine SULFATE 50 MG/1 ML INJ ONE (11:04)
[2021-11-13] MEDS: HEPARIN 10,000 UNITS/10 ML VIAL ONE ×4 (11:49→13:32)
[2021-11-13] MEDS ORDERED: APIXABAN 5 MG TAB ONE (14:05)
--- NOTE | 2021-11-13 14:24 | Short Stay Summary ---
Short Stay Documentation Date of service: 11/13/21 Narrative H&P: 66-year-old female with recent cervical stenosis status post ACDF complicated by extensive right lower extremity DVT who has a history of right lower extremity DVT. Presents for DVT thrombectomy due to severe swelling, pain, numbness of the right foot, and discoloration of the toes. - History Principal diagnosis: Iliofemoral DVT H&P: obtained from office - Allergies and Medications Current Medications: Allergies atorvastatin Allergy (Verified 11/13/21 08:00) Swelling strawberry Allergy (Unverified 02/26/17 12:27) Rash Home Medications Medication Instructions Recorded Confirmed Last Taken Type Apixaban [Eliquis] 10 mg PO BID 02/26/17 02/26/17 11/13/21 06:00 History Apixaban [Eliquis] 5 mg PO BID #60 tablet 02/28/17 11/13/21 Rx Aspirin EC [Halfprin EC] 81 mg PO QDAY 11/13/21 11/13/21 11/13/21 History Losartan/Hydrochlorothiazide 1 each PO DAILY 11/13/21 11/13/21 11/12/21 History [Losartan-Hctz 50-12.5 mg Tab] Pantoprazole [Protonix] 40 mg PO QDAY 11/13/21 11/13/21 11/12/21 History Rosuvastatin Calcium 40 mg PO DAILY 11/13/21 11/13/21 11/12/21 History Active Medications Sodium Chloride (Nacl 0.9% 1000 Ml) 1,000 mls @ 42 mls/hr IV DIRECT PATRICK Midazolam HCl (Midazolam 2 Mg/2 Ml Inj) 2 mg IV PREOP NR Stop: 11/13/21 23:59 Last Admin: 11/13/21 10:46 Dose: 1 mg - Physical exam General appearance: mild distress (Right lower extremity pain) Lungs: Normal air movement Heart: Regular rate Gastrointestinal: normal Extremities: pulses intact, abnormal (3+ edema of the right lower extremity, pain with palpation of the right lower extremity, numbness of the right foot, discoloration of the) - Brief post op/procedure progress note Date of procedure: 11/13/21 Pre-op diagnosis: Iliofemoral right lower extremity DVT Post-op diagnosis: same Procedure: 1. Ultrasound-guided access of the right internal jugular vein. 2. Selection of the IVC with venography. 3. Selection of the right common iliac vein with venography. 4. Fluoroscopic guided placement of a infrarenal IVC filter, Gloria, retrievable 5. Selection of the right common iliac vein, external iliac vein, common femoral vein, superficial femoral vein, popliteal vein, and venography of the right lower extremity. 6. Thrombectomy of the right common iliac vein, external iliac vein, common femoral vein, superficial femoral vein, popliteal vein, of the right lower extremity with a indigo CAT 12 device with separator 7. Ent Surgeon thrombectomy of the right common iliac vein, external iliac vein, and common femoral vein. 8. Angioplasty of the right common iliac vein with a 12 mm x 40 mm and 14 mm x 40 mm angioplasty balloon. 9. Angioplasty of the right external iliac vein, common femoral vein, and superficial femoral vein with a 12 mm x 40 and 12 mm x 60 mm angioplasty balloon 10. 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
--- NOTE | 2021-11-13 14:30 | Operative Report ---
Operative Report Operative Report: EXAM: 1. Ultrasound-guided access of the right internal jugular vein. 2. Selection of the IVC with venography. 3. Selection of the right common iliac vein with venography. 4. Fluoroscopic guided placement of a infrarenal IVC filter, Gloria, retrievable 5. Selection of the right common iliac vein, external iliac vein, common femoral vein, superficial femoral vein, popliteal vein, and venography of the right lower extremity. 6. Thrombectomy of the right common iliac vein, external iliac vein, common femoral vein, superficial femoral vein, popliteal vein, of the right lower extremity with a indigo CAT 12 device with separator 7. Cattle Brander thrombectomy of the right common iliac vein, external iliac vein, and common femoral vein. 8. Angioplasty of the right common iliac vein with a 12 mm x 40 mm and 14 mm x 40 mm angioplasty balloon. 9. Angioplasty of the right external iliac vein, common femoral vein, and superficial femoral vein with a 12 mm x 40 and 12 mm x 60 mm angioplasty balloon 10. Thrombectomy of the IVC below the filter and within the filter with a 12 indigo penumbra device DATE: 11/13/2021 PATIENT FINANCIAL COUNSELOR: AMPARO BETANCOURT MD INDICATION: [ ] MEDICATIONS: Please see nursing report for full details. DEVICES: [ ] CONTRAST: [ ] PROCEDURE: [ ] FINDINGS: [ ] IMPRESSION: [ ]
[2021-11-13] MEDS ORDERED: ONDANSETRON 4 MG/2 ML INJ IV PRN (14:34)
[2021-11-13] MEDS ORDERED: ACETAMINOPHEN 325 MG TAB PO PRN (14:34)
[2021-11-13] MEDS ORDERED: NALOXONE 0.4 MG/1 ML INJ IV PRN (14:34)
[2021-11-13] MEDS ORDERED: ALBUTEROL 2.5 MG/3 ML NEBU IH PRN (14:34)
[2021-11-13] MEDS ORDERED: ROSUVASTATIN CALCIUM 40 MG PO SCH (14:45)
[2021-11-13] MEDS ORDERED: NON-FORMULARY EACH (Losartan/Hydrochlorothiazide [Losartan-Hctz 50-12.5 Mg Tab] 1 EACH Tab PO SCH (14:45)
--- NOTE | 2021-11-13 16:11 | Post Anesthesia Evaluation ---
- Post Anesthesia Evaluation Patient Participated: Yes Airway Patent: Yes Stable Respiratory Function: Yes Nausea/Vomiting: No Temp > 96.8F: Yes Pain Manageable: Yes Adequeate Hydration: Yes Anesthesia Complications: No Block Receding Appropriately: Not Applicable Patient on Ventilator: No
[2021-11-13] MEDS: LOSARTAN 50 MG TAB PO SCH (17:00)
[2021-11-13] MEDS: PANTOPRAZOLE 40 MG TAB PO SCH (17:01)
[2021-11-13] MEDS: hydroCHLOROthiazide 12.5 MG CAP PO SCH (17:02)
[2021-11-13] MEDS: HYDROcodone/ACETAMINOPHEN 5-325 MG TAB PO PRN (18:54)
[2021-11-13 21:32] LABS: Hematocrit 39.4 % (30.3-42.9); Mean Corpuscular HGB Conc 33 % (30-34); Mean Corpuscular Volume 88 fl (79-97); Platelet Count 319 K/mm3 (140-440); Red Blood Count 4.48 M/mm3 (3.65-5.03); Red Cell Distribution Width 14.4 % (13.2-15.2)
[2021-11-13 21:41] LABS: INR 1.27 (0.87-1.13)
[2021-11-13 21:42] LABS: Partial Thromboplastin Time 31.5 Sec. (24.2-36.6)
[2021-11-13] MEDS: APIXABAN 5 MG TAB PO SCH (22:49)
[2021-11-13 23:29] LABS: Hematocrit 38.5 % (30.3-42.9); Mean Corpuscular HGB Conc 34 % (30-34); Mean Corpuscular Volume 88 fl (79-97); Platelet Count 323 K/mm3 (140-440); Red Cell Distribution Width 14.4 % (13.2-15.2)
[2021-11-14 06:23] LABS: Basophils % (Auto) 0.6 % (0.0-1.8); Eosinophils # (Auto) 0.3 K/mm3 (0.0-0.4); Eosinophils % (Auto) 3.3 % (0.0-4.3); Hematocrit 38.6 % (30.3-42.9); Hemoglobin 12.6 gm/dl (10.1-14.3); Lymphocytes # (Auto) 2.4 K/mm3 (1.2-5.4); Lymphocytes % (Auto) 28.3 % (13.4-35.0); Mean Corpuscular HGB Conc 33 % (30-34); Mean Corpuscular Volume 88 fl (79-97); Monocytes # (Auto) 0.7 K/mm3 (0.0-0.8); Monocytes % (Auto) 8.2 % (0.0-7.3); Platelet Count 318 K/mm3 (140-440); Red Blood Count 4.38 M/mm3 (3.65-5.03); Red Cell Distribution Width 14.7 % (13.2-15.2)
[2021-11-14 06:37] LABS: Blood Urea Nitrogen 6 mg/dL (7-17); Calcium 8.8 mg/dL (8.4-10.2); Hemolysis Index 2
[2021-11-14 06:41] LABS: BUN/Creatinine Ratio 12
[2021-11-14] MEDS: ASPIRIN EC 81 MG TAB PO SCH ×2 (10:29→10:31)
[2021-11-14] MEDS: hydroCHLOROthiazide 12.5 MG CAP PO SCH (10:30)
[2021-11-14] MEDS: APIXABAN 5 MG TAB PO SCH (10:30)
[2021-11-14] MEDS: PANTOPRAZOLE 40 MG TAB PO SCH (10:30)
[2021-11-14] MEDS: LOSARTAN 50 MG TAB PO SCH (10:31)
[2021-11-14] MEDS: HYDROcodone/ACETAMINOPHEN 5-325 MG TAB PO PRN (10:36)
[2021-11-14 12:24] VITALS: BP 136/84
--- NOTE | 2021-11-14 14:01 | Progress Note ---
Assessment and Plan Patient is status post percutaneous mechanical thrombectomy of right lower extremity. Her right leg is soft with minimal if any edema. I have advised her to continue wearing her DAGO hose until she gets compression socks. I explained to the patient as well as the family to get extra-large with 20 to 30 mmHg of pressure. I also provided the patient with a discount card which will provide her with 30 days of free Eliquis. I also provided her with 1 month of samples. Discharge instructions have been explained. The patient as well as her daughter, and , have expressed understanding and agree. They will follow-up in outpatient setting with Dr. Stovall in 2 weeks. Subjective Date of service: 11/14/21 Principal diagnosis: Iliofemoral DVT Interval history: Patient complaining of some neck pain. She states her leg feels good. She has no additional complaints at this time. Objective - Constitutional Vitals: Vital Signs - 12hr 11/14/21 11/14/21 11/14/21 07:00 10:00 11:10 Temperature 98.7 F 98.3 F Pulse Rate 80 108 H 90 Respiratory 19 18 Rate Blood Pressure 148/88 136/84 [Left] O2 Sat by Pulse 98 98 99 Oximetry General appearance: Present: no acute distress - Neck Neck: other (Right neck access site is soft and free of hematoma) - Respiratory Respiratory effort: normal - Cardiovascular Rhythm: regular Extremities: no ischemia, No edema - Gastrointestinal General gastrointestinal: Present: soft - Labs CBC & Chem 7: 11/14/21 05:39 11/14/21 05:39 Labs: Abnormal lab results 11/13/21 11/13/21 11/13/21 Range/Units 12:36 21:00 21:00 [place] % (Auto) (0.0-7.3) % PT 17.4 H (12.2-14.9) Sec. INR 1.27 H (0.87-1.13) Chloride (98-107) mmol/L BUN (7-17) mg/dL Creatinine 0.4 L (0.6-1.2) mg/dL Crossmatch See Detail 11/14/21 11/14/21 Range/Units 05:39 05:39 [place] % (Auto) 8.2 H (0.0-7.3) % PT (12.2-14.9) Sec. INR (0.87-1.13) Chloride 107.1 H (98-107) mmol/L BUN 6 L (7-17) mg/dL Creatinine 0.5 L (0.6-1.2) mg/dL Crossmatch Medications & Allergies - Medications Allergies/Adverse Reactions: Allergies atorvastatin Allergy (Verified 11/13/21 08:00) Swelling strawberry Allergy (Unverified 02/26/17 12:27) Rash Home Medications: Home Medications Medication Instructions Recorded Confirmed Last Taken Type Apixaban [Eliquis] 10 mg PO BID 02/26/17 02/26/17 11/13/21 06:00 History Apixaban [Eliquis] 5 mg PO BID #60 tablet 02/28/17 11/13/21 Rx Apixaban [Eliquis] 5 mg PO BID #60 tab 11/13/21 Unknown Rx Aspirin EC [Halfprin EC] 81 mg PO QDAY 11/13/21 11/13/21 11/13/21 History HYDROcodone/APAP 5-325 [[place] 1 - 2 each PO Q6HR PRN #60 tablet 11/13/21 Unknown Rx 5/325] Losartan/Hydrochlorothiazide 1 each PO DAILY 11/13/21 11/13/21 11/12/21 History [Losartan-Hctz 50-12.5 mg Tab] Pantoprazole [Protonix] 40 mg PO QDAY 11/13/21 11/13/21 11/12/21 History Rosuvastatin Calcium 40 mg PO DAILY 11/13/21 11/13/21 11/12/21 History Active Medications: Generic Name Dose Route Start Last Admin Trade Name Freq PRN Reason Stop Dose Admin Acetaminophen 650 mg 11/13/21 14:34 Acetaminophen 325 Mg Tab PO Q4H PRN Pain MILD(1-3)/Fever >100.5/MATHEWS Hydrocodone Bitart/Acetaminophen 2 each 11/13/21 14:34 11/14/21 10:36 Hydrocodone/Acetaminophen 5-325 Mg Tab PO 1 each Q6H PRN Administration Pain, Moderate (4-6) Albuterol 2.5 mg 11/13/21 14:34 Albuterol 2.5 Mg/3 Ml Nebu IH Q4HRT PRN Shortness Of Breath Apixaban 10 mg 11/13/21 22:00 11/14/21 10:30 Apixaban 5 Mg Tab PO 11/20/21 10:01 10 mg Q12HR PATRICK Administration Protocol Apixaban 5 mg 11/20/21 22:00 Apixaban 5 Mg Tab PO Q12HR PATRICK Protocol Aspirin 81 mg 11/13/21 15:00 11/14/21 10:31 Aspirin Ec 81 Mg Tab PO 81 mg QDAY PATRICK Administration Hydrochlorothiazide 12.5 mg 11/13/21 15:00 11/14/21 10:30 Hydrochlorothiazide 12.5 Mg Cap PO 12.5 mg QDAY PATRICK Administration Sodium Chloride 1,000 mls @ 42 mls/hr 11/13/21 09:00 Nacl 0.9% 1000 Ml IV DIRECT PATRICK Losartan Potassium 50 mg 11/13/21 15:00 11/14/21 10:31 Losartan 50 Mg Tab PO 50 mg QDAY PATRICK Administration Naloxone HCl 0.1 mg 11/13/21 14:34 Naloxone 0.4 Mg/1 Ml Inj IV Q2MIN PRN Res Rate </= 8 or 02 SAT < 92% Ondansetron HCl 4 mg 11/13/21 14:34 Ondansetron 4 Mg/2 Ml Inj IV Q8H PRN Nausea And Vomiting Pantoprazole Sodium 40 mg 11/13/21 15:00 11/14/21 10:30 Pantoprazole 40 Mg Tab PO 40 mg QDAY PATRICK Administration Sodium Chloride 10 ml 11/13/21 22:00 11/14/21 10:31 Sodium Chloride 0.9% 10 Ml Flush Syringe IV 10 ml BID PATRICK Administration Sodium Chloride 10 ml 11/13/21 14:34 Sodium Chloride 0.9% 10 Ml Flush Syringe IV PRN PRN LINE FLUSH
--- NOTE | 2021-11-14 14:02 | Short Stay Summary ---
Short Stay Documentation Date of service: 11/14/21 Narrative H&P: See H&P - History H&P: obtained from office - Allergies and Medications Current Medications: Allergies atorvastatin Allergy (Verified 11/13/21 08:00) Swelling strawberry Allergy (Unverified 02/26/17 12:27) Rash Home Medications Medication Instructions Recorded Confirmed Last Taken Type Apixaban [Eliquis] 10 mg PO BID 02/26/17 02/26/17 11/13/21 06:00 History Apixaban [Eliquis] 5 mg PO BID #60 tablet 02/28/17 11/13/21 Rx Apixaban [Eliquis] 5 mg PO BID #60 tab 11/13/21 Unknown Rx Aspirin EC [Halfprin EC] 81 mg PO QDAY 11/13/21 11/13/21 11/13/21 History HYDROcodone/APAP 5-325 [[place] 1 - 2 each PO Q6HR PRN #60 tablet 11/13/21 Unknown Rx 5/325] Losartan/Hydrochlorothiazide 1 each PO DAILY 11/13/21 11/13/21 11/12/21 History [Losartan-Hctz 50-12.5 mg Tab] Pantoprazole [Protonix] 40 mg PO QDAY 11/13/21 11/13/21 11/12/21 History Rosuvastatin Calcium 40 mg PO DAILY 11/13/21 11/13/21 11/12/21 History Active Medications Acetaminophen (Acetaminophen 325 Mg Tab) 650 mg PO Q4H PRN PRN Reason: Pain MILD(1-3)/Fever >100.5/MATHEWS Hydrocodone Bitart/Acetaminophen (Hydrocodone/Acetaminophen 5-325 Mg Tab) 2 each PO Q6H PRN PRN Reason: Pain, Moderate (4-6) Last Admin: 11/14/21 10:36 Dose: 1 each Albuterol (Albuterol 2.5 Mg/3 Ml Nebu) 2.5 mg IH Q4HRT PRN PRN Reason: Shortness Of Breath Apixaban (Apixaban 5 Mg Tab) 10 mg PO Q12HR PATRICK; Protocol Stop: 11/20/21 10:01 Last Admin: 11/14/21 10:30 Dose: 10 mg Apixaban (Apixaban 5 Mg Tab) 5 mg PO Q12HR PATRICK; Protocol Aspirin (Aspirin Ec 81 Mg Tab) 81 mg PO QDAY [facility] Last Admin: 11/14/21 10:31 Dose: 81 mg Hydrochlorothiazide (Hydrochlorothiazide 12.5 Mg Cap) 12.5 mg PO QDAY [facility] Last Admin: 11/14/21 10:30 Dose: 12.5 mg Sodium Chloride (Nacl 0.9% 1000 Ml) 1,000 mls @ 42 mls/hr IV DIRECT [facility] Losartan Potassium (Losartan 50 Mg Tab) 50 mg PO QDAY [facility] Last Admin: 11/14/21 10:31 Dose: 50 mg Naloxone HCl (Naloxone 0.4 Mg/1 Ml Inj) 0.1 mg IV Q2MIN PRN PRN Reason: Res Rate </= 8 or 02 SAT < 92% Ondansetron HCl (Ondansetron 4 Mg/2 Ml Inj) 4 mg IV Q8H PRN PRN Reason: Nausea And Vomiting Pantoprazole Sodium (Pantoprazole 40 Mg Tab) 40 mg PO QDAY [facility] Last Admin: 11/14/21 10:30 Dose: 40 mg Sodium Chloride (Sodium Chloride 0.9% 10 Ml Flush Syringe) 10 ml IV BID [facility] Last Admin: 11/14/21 10:31 Dose: 10 ml Sodium Chloride (Sodium Chloride 0.9% 10 Ml Flush Syringe) 10 ml IV PRN PRN PRN Reason: LINE FLUSH - Physical exam Heart: Regular rate Extremities: no ischemia, No edema - Hospital course Hospital course: Operative Report: EXAM: 1. Ultrasound-guided access of the right internal jugular vein. 2. Selection of the IVC with venography. 3. Selection of the right common iliac vein with venography. 4. Fluoroscopic guided placement of a infrarenal IVC filter, Gloria, retrievable 5. Selection of the right common iliac vein, external iliac vein, common femoral vein, superficial femoral vein, popliteal vein, and venography of the right lower extremity. 6. Thrombectomy of the right common iliac vein, external iliac vein, common femoral vein, superficial femoral vein, popliteal vein, of the right lower extremity with a indigo CAT 12 device with separator 7. Lead Informatica Developer thrombectomy of the right common iliac vein, external iliac vein, and common femoral vein. 8. Angioplasty of the right common iliac vein with a 12 mm x 40 mm and 14 mm x 40 mm angioplasty balloon. 9. Angioplasty of the right external iliac vein, common femoral vein, and superficial femoral vein with a 12 mm x 40 and 12 mm x 60 mm angioplasty balloon 10. Thrombectomy of the IVC below the filter and within the filter with a 12 indigo penumbra device DATE: 11/13/2021 PAPER COATING MACHINE OPERATOR: AMPARO BETANCOURT MD The patient was admitted and taken to the [facility] for percutaneous mechanical thrombectomy on 11/13/2021. She had an excellent result with minimal complaints. On postprocedure day #1 she continues to do well with very little edema remaining. She is clinically ready for discharge to home. - Disposition Condition at discharge: Good Disposition: 01 HOME / SELF CARE / HOMELESS Short Stay Discharge Plan Wound: open to air, keep clean and dry, other (Okay to shower and wash the incision with soap and water but do not soak in water for 2 weeks.) Follow up with: AMPARO BETANCOURT MD [Staff Physician] - 14 Days Prescriptions: Apixaban [Eliquis] 5 mg PO BID #60 tab HYDROcodone/APAP 5-325 [[place] 5/325] 1 - 2 each PO Q6HR PRN #60 tablet PRN Reason: Pain
[2021-11-20] MEDS ORDERED: APIXABAN 5 MG TAB PO SCH (22:00)
== END 2021-11-14 15:05 | disposition home or self-care (01) | DRG 272 ==
LOC: CATHLABREC 07:20 → 4A 14:34
PROVIDERS: ADMIT Radiology Diagnostic Radiology; ATTEND Radiology Diagnostic Radiology
PROC: 06CC3ZZ Extirpation of Matter from Right Common Iliac Vein, Percutaneous Approach (ICD-10-PCS; principal; 2021-11-13)
PROC: 06CM3ZZ Extirpation of Matter from Right Femoral Vein, Percutaneous Approach (ICD-10-PCS; 2021-11-13)
PROC: 06CF3ZZ Extirpation of Matter from Right External Iliac Vein, Percutaneous Approach (ICD-10-PCS; 2021-11-13)
PROC: 067C3ZZ Dilation of Right Common Iliac Vein, Percutaneous Approach (ICD-10-PCS; 2021-11-13)
PROC: 067F3ZZ Dilation of Right External Iliac Vein, Percutaneous Approach (ICD-10-PCS; 2021-11-13)
PROC: 067M3ZZ Dilation of Right Femoral Vein, Percutaneous Approach (ICD-10-PCS; 2021-11-13)
PROC: 06H03DZ Insertion of Intraluminal Device into Inferior Vena Cava, Percutaneous Approach (ICD-10-PCS; 2021-11-13)
PROC: 30233N1 Transfusion of Nonautologous Red Blood Cells into Peripheral Vein, Percutaneous Approach (ICD-10-PCS; 2021-11-13)
DX: I82.421 Acute embolism and thrombosis of right iliac vein (principal)
CPT/HCPCS: 36415; 37187; 37191; 37248; 37249; 75820; 76937; 80048; 82565; 85025; 85027; 85610; 85730; 86850; 86900; 86901; 86920; G0378; J3490; C1725; C1757; C1769; C1880; C1887; J1644; J2250; J2704; J3010; J7030; P9016; Q9967